=== PATIENT | male | born 1955 ===

== ENCOUNTER → 2024-11-02 13:13 | Day surgery (SDC) | payer MEDICARE, BC, SELFPAY ==
[2024-11-02 15:05] LABS: Hematocrit 41.5 % (39.0-52.0); Hemoglobin 14.1 g/dL (13.0-18.0); Mean Corpuscular Hgb 32.5 pg (27.0-31.0); Mean Corpuscular Volume 95.6 fL (80.0-94.0); Mean Platelet Volume 9.6 fL (7.4-10.4); Platelet Count 188 10^3/uL (130-400); Red Blood Cell Count 4.34 10^6/uL (4.70-6.10); Red Cell Dist. Width 12.2 % (11.5-14.5); White Blood Cell Count 6.9 10^3/uL (4.8-10.8)
== END ==
LOC: SDSPAT 13:13
PROVIDERS: ATTENDING PHYSICIAN Specialist; FAMILY PHYSICIAN Internal Medicine
DX: Z01.810 Encounter for preprocedural cardiovascular examination (principal); Z01.812 Encounter for preprocedural laboratory examination
CPT/HCPCS: 93005; 36415; 85027

== ENCOUNTER → 2024-11-08 10:39 | Outpatient (REF) | payer MEDICARE, BC, SELFPAY | LOC: RAD 10:39 | PROVIDERS: ATTENDING PHYSICIAN Specialist; FAMILY PHYSICIAN Internal Medicine | DX: R31.0 Gross hematuria (principal) | CPT/HCPCS: 74178; Q9967 ==

== ENCOUNTER 2024-11-10 05:59 | Day surgery (SDC) | payer MEDICARE, BC, SELFPAY ==
[2024-11-02 14:32] VITALS: BMI 32.3
[2024-11-10] VITALS (12 sets, daily range): BP systolic 136–160; BP diastolic 79–95; BMI 32.3
[2024-11-10] MEDS: NORMOSOL-R/PLASMALYTE-A 1000 IV (06:37)
[2024-11-10] MEDS: SYRINGE NON-PUMP 50 ML IRRIG ×2 (08:27→08:28)
[2024-11-10] MEDS: SYRINGE NON-PUMP 50 MG IRRIG ×2 (08:27→08:28)
[2024-11-10] MEDS: DETROL LA 4 MG PO (09:47)
== END 2024-11-10 10:53 | disposition home or self-care (01) ==
LOC: SDS 05:59
PROVIDERS: ATTENDING PHYSICIAN Specialist
DX: C67.2 Malignant neoplasm of lateral wall of bladder (principal); D49.4 Neoplasm of unspecified behavior of bladder
CPT/HCPCS: 52234; 88307; J9201

== ENCOUNTER → 2024-12-29 11:58 | Outpatient (REF) | payer MEDICARE, BC, SELFPAY | LOC: DHSLP 11:58 | PROVIDERS: ATTENDING PHYSICIAN Internal Medicine | DX: G47.33 Obstructive sleep apnea (adult) (pediatric) (principal); R09.02 Hypoxemia | CPT/HCPCS: 95800 ==

== ENCOUNTER → 2025-04-24 08:43 | Outpatient (REF) | payer MEDICARE, BC, SELFPAY ==
[2025-04-24 11:34] LABS: Hematocrit 40.4 % (39.0-52.0); Hemoglobin 13.8 g/dL (13.0-18.0); Mean Corp Hgb Conc. 34.2 g/dL (33.0-37.0); Mean Corpuscular Volume 96.0 fL (80.0-94.0); Platelet Count 184 10^3/uL (130-400); Red Cell Dist. Width 12.5 % (11.5-14.5)
[2025-04-24 12:16] LABS: Blood Urea Nitrogen 16 mg/dl (9-20); Calcium 8.9 mg/dl (8.4-10.2); Carbon Dioxide 29 mmol/L (22-30); Chloride 104 mmol/L (98-107); Glucose 134 mg/dl (70-99); Potassium 4.4 mmol/L (3.5-5.1); Sodium 138 mmol/L (135-145); eGFR > 60.00
== END ==
LOC: SDSPAT 08:43
PROVIDERS: ATTENDING PHYSICIAN Specialist; FAMILY PHYSICIAN Internal Medicine
DX: Z01.818 Encounter for other preprocedural examination (principal)
CPT/HCPCS: 36415; 80048; 85027

== ENCOUNTER 2025-04-27 06:25 | Day surgery (SDC) | payer MEDICARE, BC, SELFPAY ==
[2025-04-24 14:22] VITALS: BMI 31.8
[2025-04-27] VITALS (9 sets, daily range): BP systolic 128–154; BP diastolic 81–96; BMI 31.8
[2025-04-27] MEDS: CYSVIEW KIT 100 MG INTRAVES (08:25)
[2025-04-27] MEDS: NORMOSOL-R/PLASMALYTE-A 1000 IV (08:33)
== END 2025-04-27 12:58 | disposition home or self-care (01) ==
LOC: SDS 06:25
PROVIDERS: ATTENDING PHYSICIAN Specialist; FAMILY PHYSICIAN Internal Medicine
DX: Z98.890 Other specified postprocedural states (principal); Z85.51 Personal history of malignant neoplasm of bladder
CPT/HCPCS: 52204; C9738; 74420; 76000; 88305; A9589

== ENCOUNTER 2025-10-11 08:48 | Outpatient (RCR) | payer MEDICARE, BC, SELFPAY | END 2025-10-11 23:59 | disposition home or self-care (01) | LOC: CRHB 08:48 | PROVIDERS: ATTENDING PHYSICIAN Internal Medicine Cardiovascular Disease | DX: I25.10 Atherosclerotic heart disease of native coronary artery without angina pectoris (principal); Z95.1 Presence of aortocoronary bypass graft | CPT/HCPCS: G0422; G0423 ==